=== PATIENT | male | born 1995 | race Caucasian/White ===

== ENCOUNTER → 2017-02-19 | Outpatient (CLI) | payer OTHER ==
--- NOTE | 2017-02-19 16:28 | REP ---
TRIPLE PHASE BONE SCAN OF HIPS: Following the intravenous administration of 21.7 mCi of technetium 99m MDP, the patient's pelvis and hips are imaged in the flow phase in the anterior and posterior projections showing no abnormal blood flow bilaterally. Immediate blood pool and two hour delayed images are performed of the pelvis and hips in the anterior, posterior, both anterior and posterior oblique and both lateral projections. There is no abnormal blood pooling. Delayed images show symmetrical activity at both hips including the proximal halves of the femurs. No scintigraphic abnormalities are seen. IMPRESSION: Negative triple phase bone scan hips. No evidence of occult fracture. Signed by Jack Thomas MD 02/19/2017 05:10 P
== END ==
LOC: M RAD 08:55
PROVIDERS: ATTEND Physician Assistant
DX: M25.551 Pain in right hip (principal)
CPT/HCPCS: 78315; A9503